=== PATIENT | male | born 1985 | race Two or more races ===

== ENCOUNTER → 2020-03-16 | Outpatient (CLI) | payer BC | END | disposition home or self-care (01) | LOC: LAB 03-15 15:36 | PROVIDERS: ATTEND Internal Medicine Critical Care Medicine | DX: Z20.828 Contact with and (suspected) exposure to other viral communicable diseases (principal) | CPT/HCPCS: C9803; U0003 ==

== ENCOUNTER → 2020-04-18 | Outpatient (CLI) | payer BC | END | disposition home or self-care (01) | LOC: LAB 04-17 12:29 | PROVIDERS: ATTEND Internal Medicine Critical Care Medicine | DX: Z20.828 Contact with and (suspected) exposure to other viral communicable diseases (principal) | CPT/HCPCS: C9803; U0003 ==

== ENCOUNTER → 2020-05-09 | Outpatient (CLI) | payer BC | END | disposition home or self-care (01) | LOC: LAB 08:32 | PROVIDERS: ATTEND Internal Medicine Critical Care Medicine | DX: Z20.828 Contact with and (suspected) exposure to other viral communicable diseases (principal) | CPT/HCPCS: C9803; U0003 ==

== ENCOUNTER → 2020-06-19 | Outpatient (CLI) | payer BC | END | disposition home or self-care (01) | LOC: MRI 06-15 08:11 | PROVIDERS: ATTEND Internal Medicine Critical Care Medicine | DX: M47.22 Other spondylosis with radiculopathy, cervical region (principal); M48.061 Spinal stenosis, lumbar region without neurogenic claudication; M25.78 Osteophyte, vertebrae | CPT/HCPCS: 72141 ==

== ENCOUNTER → 2021-06-04 | Outpatient (CLI) | payer BC | END | disposition home or self-care (01) | LOC: LAB 15:02 | PROVIDERS: ATTEND Internal Medicine Critical Care Medicine | DX: Z20.822 Contact with and (suspected) exposure to COVID-19 (principal) | CPT/HCPCS: 87426 ==

== ENCOUNTER → 2024-04-02 | Outpatient (CLI) | payer BC | END | disposition home or self-care (01) | LOC: RAD 04-01 11:16 | PROVIDERS: ATTEND Internal Medicine Critical Care Medicine | DX: M25.561 Pain in right knee (principal); M25.562 Pain in left knee | CPT/HCPCS: 73562 ==